=== PATIENT | female | born 2000 | race Caucasian/White ===

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

== ENCOUNTER 2022-04-24 17:40 | Outpatient (REF) | payer BC, SELFPAY | END 2022-04-24 17:41 | disposition home or self-care (01) | LOC: LBN 17:40 | PROVIDERS: PCP Nurse Practitioner Family; Visit Provider Nurse Practitioner Family | DX: J02.9 Acute pharyngitis, unspecified (principal) | CPT/HCPCS: 87070 ==

== ENCOUNTER 2022-07-23 19:48 | Outpatient (REF) | payer BC, SELFPAY ==
[2022-07-23 15:08] LABS: HGB 14.5 g/dL (11.2-15.7); MCH 27.8 pg (27.0-33.0); MCV 85 fL (80-95); MPV 12.6 fL (8.0-11.0); Platelet Count 189 10^3/uL (130-400); RBC 5.21 10^6/uL (3.93-5.22); RDW 12.8 % (11.7-14.6); RDW-SD 39.4 fL; WBC 4.49 10^3/uL (4.4-10.8)
[2022-07-23 15:27] LABS: Anion Gap 6.2 mmol/L (3-11); BUN 10 mg/dL (7-18); CO2 28.8 mmol/L (21.0-32.0); CREATININE 0.6 mg/dL (0.55-1.02); Calcium 9.4 mg/dL (8.5-10.1); Chloride 105 mmol/L (98-107); Glucose 74 mg/dL (74-106); Potassium 4.2 mmol/L (3.5-5.1); Sodium 140 mmol/L (136-145); TSH (W/Ref FT4) 0.49 uIU/mL (0.36-3.74)
[2022-07-23 16:01] LABS: Vitamin D 25 Total 18.8 ng/mL (30-100)
[2022-07-26 14:48] LABS: Cacao/Cocoa, IgE <0.35 kU/L; Milk, IgE <0.35 kU/L; Strawberry, IgE 3.52 kU/L
[2022-07-26 15:08] LABS: Avocado, IgE 1.33 kU/L; Baker's Yeast, IgE <0.35 kU/L; Banana, IgE 1.11 kU/L; Barley, IgE 0.93 kU/L; Beef IgE <0.35 kU/L; Black/White Pepper IgE 0.44 kU/L; Blackberry IgE 0.82 kU/L; Cinnamon, IgE <0.35 kU/L; Corn-Food IgE 1.38 kU/L; Egg Whole IgE <0.10 kU/L; Onion, IgE 1.29 kU/L; Soybean IgE 0.98 kU/L; White Potato, IgE 1.59 kU/L
[2022-07-26 15:26] LABS: Apricot IgE 2.11 kU/L; Hop Fruit IgE 1.23 kU/L; Plum IgE 3.68 kU/L
[2022-07-30 08:31] LABS: Misc Referral (MAYO) See Comments
== END 2022-07-23 19:49 | disposition home or self-care (01) ==
LOC: NCHCN 19:48
PROVIDERS: PCP Nurse Practitioner Family; Visit Provider Family Medicine
DX: F41.8 Other specified anxiety disorders (principal); R53.83 Other fatigue; N94.4 Primary dysmenorrhea; N91.3 Primary oligomenorrhea; L68.0 Hirsutism; Z91.013 Allergy to seafood; Z87.892 Personal history of anaphylaxis; E55.9 Vitamin D deficiency, unspecified; Z01.82 Encounter for allergy testing
CPT/HCPCS: 80048; 82306; 85027; 86003; 84443

== ENCOUNTER 2022-08-27 12:30 | Outpatient (REF) | payer BC, SELFPAY ==
[2022-09-01 16:35] LABS: Testosterone, Free 0.77 ng/dL (<0.13-1.08); Testosterone, Total 49 ng/dL (8-60)
== END 2022-08-27 12:31 | disposition home or self-care (01) ==
LOC: NCHCN 12:30
PROVIDERS: PCP Nurse Practitioner Family; Visit Provider Family Medicine
DX: N91.5 Oligomenorrhea, unspecified (principal); F41.8 Other specified anxiety disorders; L68.0 Hirsutism; E55.9 Vitamin D deficiency, unspecified; Z00.00 Encounter for general adult medical examination without abnormal findings
CPT/HCPCS: 84402; 84403

== ENCOUNTER 2024-10-23 22:10 | Outpatient (REF) | payer BC, SELFPAY ==
[2024-10-23 23:27] LABS: TSH (W/Ref FT4) 0.55 uIU/mL (0.36-3.74); Vitamin D 25 Total 21 ng/mL (30-100)
== END 2024-10-23 22:11 | disposition home or self-care (01) ==
LOC: NCHCN 22:10
PROVIDERS: Visit Provider Family Medicine
DX: E55.9 Vitamin D deficiency, unspecified (principal); Z83.49 Family history of other endocrine, nutritional and metabolic diseases
CPT/HCPCS: 82306; 84443